=== PATIENT | female | born 1990 | race Caucasian/White ===

== ENCOUNTER → 2025-05-02 20:11 | Outpatient (REF) | payer OTHER, SELFPAY | LOC: MRI 20:11 | PROVIDERS: ATTENDING PHYSICIAN Orthopaedic Surgery; FAMILY PHYSICIAN Physician Assistant Medical | DX: M25.551 Pain in right hip (principal) | CPT/HCPCS: 73721 ==

== ENCOUNTER 2025-06-19 07:10 | Outpatient (RCR) | payer OTHER, SELFPAY | END 2025-06-19 23:59 | disposition home or self-care (01) | LOC: RPT 07:10 | PROVIDERS: ATTENDING PHYSICIAN Orthopaedic Surgery; FAMILY PHYSICIAN Physician Assistant Medical | DX: M25.551 Pain in right hip (principal); Z73.6 Limitation of activities due to disability; R26.89 Other abnormalities of gait and mobility; M87.9 Osteonecrosis, unspecified | CPT/HCPCS: 97110; 97161 ==

== ENCOUNTER 2025-07-15 18:37 | Outpatient (RCR) | payer OTHER, SELFPAY | END 2025-07-15 23:59 | disposition home or self-care (01) | LOC: RPT 18:37 | PROVIDERS: ATTENDING PHYSICIAN Orthopaedic Surgery; FAMILY PHYSICIAN Physician Assistant Medical | DX: M25.551 Pain in right hip (principal); Z73.6 Limitation of activities due to disability; R26.89 Other abnormalities of gait and mobility; M87.851 Other osteonecrosis, right femur; M87.9 Osteonecrosis, unspecified | CPT/HCPCS: 97010; 97110; 97112; 97140 ==

== ENCOUNTER 2025-08-07 18:41 | Outpatient (RCR) | payer OTHER, SELFPAY | END 2025-08-08 06:13 | disposition home or self-care (01) | LOC: RPT 18:41 | PROVIDERS: ATTENDING PHYSICIAN Orthopaedic Surgery; FAMILY PHYSICIAN Physician Assistant Medical | DX: M25.551 Pain in right hip (principal); Z73.6 Limitation of activities due to disability; R26.89 Other abnormalities of gait and mobility; M87.851 Other osteonecrosis, right femur; M87.9 Osteonecrosis, unspecified | CPT/HCPCS: 97010; 97110; 97112; 97140 ==

== ENCOUNTER → 2025-09-15 06:34 | Outpatient (REF) | payer OTHER, SELFPAY | LOC: PAVMRI 06:34 | PROVIDERS: ATTENDING PHYSICIAN Physician Assistant; FAMILY PHYSICIAN Physician Assistant Medical | DX: M25.559 Pain in unspecified hip (principal) | CPT/HCPCS: 73721 ==